=== PATIENT | female | born 1950 | race Caucasian/White ===

== ENCOUNTER → 2017-10-12 | Outpatient (CLI) | payer MEDICARE, OTHER ==
[~2017-10-12] MED LIST: CHOL20002 PO; LEVO50TA5 PO; VENL75TA PO; ZOLP-413 PO
[2017-10-12 11:21] LABS: MICROSCOPIC AUTO
== END | disposition home or self-care (01) ==
LOC: STAR 10:15
PROVIDERS: ATTEND Urology
DX: Z01.818 Encounter for other preprocedural examination (principal); N20.0 Calculus of kidney
CPT/HCPCS: 81001; 87086; 93005

== ENCOUNTER 2017-10-18 07:53 | Day surgery (SDC) | payer MEDICARE, OTHER ==
[~2017-10-18] VITALS: Ht 165.1 cm; Wt 63.9 kg
[2017-10-18] MEDS ORDERED: LACTATED RINGERS 1,000 ML IV SCH (08:45)
[2017-10-18 08:52] VITALS: BP 132/90
[2017-10-18] MEDS ORDERED: FENTANYL PF 100 MCG/2ML ONE (13:14)
[2017-10-18] MEDS ORDERED: MIDAZOLAM 1 MG/ML, 2ML ONE (13:14)
[2017-10-18] MEDS ORDERED: KETOROLAC 30 MG/1 ML ONE (13:34)
[2017-10-18] MEDS ORDERED: CIPROFLOXACIN/PMX 400MG/200ML 200 ML ONE (13:52)
[2017-10-18] MEDS ORDERED: OMNIPAQUE 350 MG/ML, 50 ML BOTTLE ONE (13:56)
[2017-10-18] MEDS ORDERED: OMNIPAQUE 350 MG/ML, 50 ML BOTTLE INJ ONE (14:00)
[2017-10-18] MEDS ORDERED: LABETALOL 5MG/ML, 20ML IV PRN (14:30)
[2017-10-18] MEDS ORDERED: SCOPOLAMINE PATCH, 1.5MG PATCH.TD72 TD PRN (14:30)
[2017-10-18] MEDS ORDERED: ALBUTEROL/IPRATROPIUM 2.5MG/0.5MG, 3 ML NPPB PRN (14:30)
[2017-10-18] MEDS ORDERED: FENTANYL PF 100 MCG/2ML IV PRN (14:30)
[2017-10-18] MEDS ORDERED: METOCLOPRAMIDE 5 MG/ML, 2ML IV PRN (14:30)
[2017-10-18] MEDS ORDERED: MIDAZOLAM 1 MG/ML, 2ML IV PRN (14:30)
[2017-10-18] MEDS ORDERED: OXYcodone 5 MG/5 ML ORAL.SOL UDC PO PRN (14:30)
[2017-10-18] MEDS ORDERED: ACETAMINOPHEN 325 MG TABLET PO PRN (14:30)
[2017-10-18] MEDS ORDERED: MEPERIDINE/PF 25MG/0.5ML IVPush PRN (14:30)
[2017-10-18] MEDS ORDERED: ONDANSETRON 2MG/ML, 2ML IV PRN (14:30)
[2017-10-18] MEDS ORDERED: PROMETHAZINE 25 MG/ML, 1ML IV PRN (14:30)
[2017-10-18] MEDS ORDERED: EPHEDRINE 50 MG/ML, 1ML IM PRN (14:30)
[2017-10-18] MEDS ORDERED: PROPOFOL 10 MG/ML, 20ML ONE (14:53)
[2017-10-18] MEDS ORDERED: DEXAMETHASONE 4 MG/ML, 1ML ONE (14:53)
[2017-10-18] MEDS ORDERED: ONDANSETRON 2MG/ML, 2ML ONE (14:53)
[2017-10-18] MEDS ORDERED: OXYcodone 5 MG/5 ML ORAL.SOL UDC ONE (15:23)
[2017-10-18] MEDS ORDERED: ACETAMINOPHEN 650 MG/20.3 ML UDC ONE (15:23)
== END 2017-10-18 17:05 | disposition home or self-care (01) ==
LOC: OUT 07:53
PROVIDERS: ATTEND Urology
DX: N20.0 Calculus of kidney (principal); E03.9 Hypothyroidism, unspecified; Z90.710 Acquired absence of both cervix and uterus; Z90.721 Acquired absence of ovaries, unilateral; Z98.890 Other specified postprocedural states; Z88.1 Allergy status to other antibiotic agents
CPT/HCPCS: 50590; C1758; J0744; J1100; J1885; J2250; J2405; J2704; J3010; J7120; Q9967

== ENCOUNTER 2018-10-03 08:53 | Day surgery (SDC) | payer MEDICARE, OTHER ==
[~2018-10-03] VITALS: Ht 165.1 cm; Wt 67.1 kg
[~2018-10-03 08:53] MED LIST changes: -CHOL20002 PO; +CHOL200052 PO
[2018-10-03] MEDS ORDERED: FENTANYL PF 100 MCG/2ML ONE ×2 (09:31→11:45)
[2018-10-03] MEDS ORDERED: LACTATED RINGERS 1,000 ML IV SCH (09:43)
[2018-10-03 09:46] VITALS: BP 130/84
[2018-10-03 09:58] LABS: MICROSCOPIC INDICATED
[2018-10-03 10:09] LABS: CULTURE INDICATED? YES
[2018-10-03] MEDS ORDERED: EPHEDRINE 50 MG/ML, 1ML ONE (10:35)
[2018-10-03] MEDS ORDERED: CEFTRIAXONE 1,000 MG ONE (10:52)
[2018-10-03] MEDS ORDERED: OXYcodone 5 MG/5 ML ORAL.SOL UDC PO PRN (11:00)
[2018-10-03] MEDS ORDERED: ONDANSETRON ODT 8 MG PO PRN (11:00)
[2018-10-03] MEDS ORDERED: ONDANSETRON 2MG/ML, 2ML IV PRN (11:00)
[2018-10-03] MEDS ORDERED: ACETAMINOPHEN 325 MG TABLET PO PRN (11:00)
[2018-10-03] MEDS ORDERED: HYDROmorphone 2 MG/ML, 1ML IVPush PRN (11:00)
[2018-10-03] MEDS ORDERED: PROMETHAZINE 25 MG SUPP PR PRN (11:00)
[2018-10-03] MEDS ORDERED: PROMETHAZINE 25 MG/ML, 1ML IV PRN (11:00)
[2018-10-03] MEDS ORDERED: FENTANYL PF 100 MCG/2ML IV PRN (11:00)
[2018-10-03] MEDS ORDERED: DEXAMETHASONE 4 MG/ML, 1ML ONE (11:12)
[2018-10-03] MEDS ORDERED: PROPOFOL 10 MG/ML, 20ML ONE (11:12)
[2018-10-03] MEDS ORDERED: ONDANSETRON 2MG/ML, 2ML ONE (11:12)
[2018-10-03] MEDS ORDERED: CEFAZOLIN 1,000 MG ONE (11:12)
[2018-10-03] MEDS ORDERED: ZOLPIDEM 5MG TABLET PO PRN (13:00)
[2018-10-04] MEDS ORDERED: LEVOTHYROXINE 50 MCG TABLET PO SCH (09:00)
[2018-10-04] MEDS ORDERED: VENLAFAXINE 75MG TABLET PO SCH (09:00)
== END 2018-10-03 14:50 | disposition home or self-care (01) ==
LOC: OUT 08:53
PROVIDERS: ATTEND Urology
DX: N20.2 Calculus of kidney with calculus of ureter (principal); Z88.1 Allergy status to other antibiotic agents; Z72.89 Other problems related to lifestyle; Z87.891 Personal history of nicotine dependence; Z90.710 Acquired absence of both cervix and uterus; Z90.721 Acquired absence of ovaries, unilateral; Z98.890 Other specified postprocedural states
CPT/HCPCS: 50590; 52356; 81001; 87086; 88300; 93005; C1758; C2617; J0696; J1100; J2405; J2704; J3010; J7120; 82360; J0690